=== PATIENT | female | born 1945 | race Caucasian/White ===

== ENCOUNTER 2018-03-05 19:13 | Emergency (ER) | payer OTHER ==
[2018-03-05 19:56] LABS: BASOPHILS % 0.5 (0.0-1.5); EOSINOPHILS % 1.6 % (0.0-6.8); MEAN CORPUSCULAR HEMOGLOBIN 30.1 pg (28.0-34.0); MEAN CORPUSCULAR VOLUME 94.1 fl (80.0-100.0); MONOCYTES % 3.2 % (0.0-11.0); NEUTROPHILS # 6.4 # k/uL (1.4-7.7)
[2018-03-05 20:15] LABS: eGFR (African) > 60; eGFR (Non-African) > 60
--- NOTE | 2018-03-05 20:17 | ED Physician Documentation ---
General Adult - HISTORIAN Historian: patient - HPI Chief Complaint: General Adult Onset: days ago Further Comments: yes (72 year old female patient presents with complaint of bilateral foot pain from neuropathy. Denies injury. Patient reports taking 5- 7 extra strength tylenol per day for the past several weeks. Patient also has bottle of Tylenol #3; 120 tabs with 5 tabs left in the bottle. Patient states "my doctor knows I'm doing this".) - ROS CONST: other (bilateral foot pain) EYES/ENT: none CVS/RESP: none GI/: diarrhea - PAST HX Past History: hypertension, other (neuropathy, HLD, anxiety, depression, GERD) Other History: diabetes Type 2 Allergies/Adverse Reactions: Allergies Allergy/AdvReac Type Severity Reaction Status Date / Time morphine Allergy Verified 03/05/18 20:35 Penicillins Allergy Verified 03/05/18 20:35 Home Medications: Ambulatory Orders Medication Instructions Recorded Acetaminophen [Tylenol Extra 500 mg PO Q6 03/05/18 Strength] Acetaminophen with Codeine 1 - 2 tab PO TID 03/05/18 [Tylenol with Codeine] Atorvastatin Calcium 40 mg PO HS 03/05/18 Buspirone HCl [Buspar] 7.5 mg PO BID 03/05/18 Diclofenac Sodium [Voltaren] 75 mg PO BID 03/05/18 Esomeprazole Magnesium [Nexium] 40 mg PO 0700 03/05/18 Glimepiride [Amaryl] 2 mg PO 0730 03/05/18 Hydroxyzine HCl [Atarax] 25 mg PO Q4H PRN 03/05/18 Losartan/Hydrochlorothiazide 1 each PO DAILY 03/05/18 [Hyzaar 100-25 Tablet] Metformin HCl [Glucophage] 1,[place] [address] 03/05/18 Metoprolol Tartrate [Lopressor] 25 mg PO DAILY 03/05/18 amLODIPine BESYLATE [Norvasc] 10 mg PO 0900 03/05/18 diphenhydrAMINE HCL [Benadryl] 25 mg PO Q4 PRN 03/05/18 - SOCIAL HX Smoking History: cigarettes - FAMILY HX Family History: No - VITAL SIGNS Vital Signs: Vital Signs Temp Pulse Resp BP Pulse Ox 156/85 10/04/13 16:00 - REVIEWED ASSESSMENTS Nursing Assessment Reviewed: Yes Vitals Reviewed: Yes Progress - Progress Progress: Confirmed and questioned patient multiple times on Tylenol intake. Explained risk of taking over 4G/24 hours. Will progress with lab and acetaminophen level. Explained we would not give pain medication until lab results are back. Acetaminophen level sent out to [facility]. 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 Recommended transfer for further evaluation and NAC treatment. Orders to start loading dose of mucomyst at 140mg/kg. Discussed lab and treatment plan with patient. Patient again c/o "why didn't Dr Taveras tell me this wasn't ok? He knew I was taking this much." Patient agrees to transfer to [facility] ED Results Lab/Radiology - Lab Results Lab Results: Lab Results 03/05/18 19:50 WBC 9.10 K/ul K/ul (4.00-12.00) RBC 3.94 M/ul M/ul (3.90-5.20) Hgb 11.9 g/dL L g/dL (12.0-16.0) Hct 37.1 % % (34.5-46.5) MCV 94.1 fl fl (80.0-100.0) MCH 30.1 pg pg (28.0-34.0) MCHC 32.0 g/dL g/dL (30.0-36.0) RDW 16.9 % H % (11.3-14.3) Plt Count 383 K/mm3 K/mm3 (130-400) Neut % (Auto) 70.1 % % (39.0-79.0) Lymph % (Auto) 23.7 % % (16.0-50.0) [place] % (Auto) 3.2 % % (0.0-11.0) Eos % (Auto) 1.6 % % (0.0-6.8) Baso % (Auto) 0.5 (0.0-1.5) Neut # (Auto) 6.4 # k/uL # k/uL (1.4-7.7) Lymph # (Auto) 2.2 # k/uL # k/uL (0.6-4.0) [place] # (Auto) 0.3 # k/uL # k/uL (0.0-0.9) Eos # (Auto) 0.2 # k/uL # k/uL (0.0-0.6) Baso # (Auto) 0.0 # k/uL # k/uL (0.0-0.5) Reactive Lymphs % 0.9 % % (0.0-5.0) Reactive Lymphs # 0.1 # k/uL # k/uL (0.0-0.8) - Orders Orders: ED Orders Category Date Time Status Continuous EKG monitoring Q30M Care 03/05/18 19:39 Active Continuous Pulse Oximetry Q30M Care 03/05/18 19:[address] IV Lock 1T Care 03/05/18 19:39 Active ACETAMINOPHEN LEVEL Stat Lab 03/05/18 19:50 Received CBC/PLATELET/DIFF Stat Lab 03/05/18 19:50 Completed CMP Stat Lab 03/05/18 19:50 Received UA W/MICRO IF INDICATED Stat Lab 03/05/18 20:05 Received Urine drug screen [DRUG SCREEN URINE MEDICAL ONLY] Stat Lab 03/05/18 19:39 Ordered EKG WITH COMPARISON Stat Ther 03/05/18 19:39 Ordered General Adult Physical Exam - PHYSICAL EXAM GENERAL APPEARANCE: moderate distress EENT: eye inspection normal, ENT inspection normal, pharynx normal, no signs of dehydration, KORY, no nystagmus, TM's nml RESPIRATORY: no resp distress, chest non-tender, breath sounds normal CVS: reg rate & rhythm, heart sounds normal, equal pulses, no murmur, no gallop , PMI nml, no JVD, no friction rub, 24 ABDOMEN: soft, no organomegaly, normal bowel sounds, no abdominal bruit, no distension SKIN: normal color, warm/dry, NR, INT, PAL, DR EXTREMITIES: non-tender, normal range of motion, no evidence of injury, no edema , other (PPP 3+; patient rubbing left foot; no ecchymosis, abrasion or edema noted in bilateral feet. 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
[2018-03-05 20:18] LABS: APPEARANCE,URINE Clear (CLEAR); COLOR,URINE Yellow (YELLOW); OCCULT BLOOD,URINE Negative (NEGATIVE); PH URINE 5.5 (5.0 - 8.0); UROBILINOGEN URINE 0.2 Eu (0.2-1.0)
[2018-03-05] MEDS ORDERED: BUTORPHANOL TARTRATE 2 MG/ML VIAL IV ONE (21:09)
[2018-03-05 21:31] LABS: CANNABINOIDS NEGATIVE ng/mL (< 50); METHYLENEDIOXYMETHAMPHETAMINE NEGATIVE ng/mL (<500)
[2018-03-05] MEDS ORDERED: ACETYLCYSTEINE 200MG/ML 30ML PO ONE (22:13)
[2018-03-05] MEDS ORDERED: ACETYLCYSTEINE 200MG/ML 30ML ONE (22:22)
[2018-03-05] MEDS ORDERED: ONDANSETRON HCL/PF 4 MG/ 2ML VIAL IVP ONE (22:28)
[2018-03-05 22:51] VITALS: BP 172/92
== END 2018-03-05 22:45 | disposition short-term general hospital (02) ==
LOC: ED 19:13
DX: T39.1X1A Poisoning by 4-Aminophenol derivatives, accidental (unintentional), initial encounter (principal); X58.XXXA Exposure to other specified factors, initial encounter; Y92.9 Unspecified place or not applicable; Y93.9 Activity, unspecified
CPT/HCPCS: 80053; 80377; 81002; 85025; 93005; J0132; J0595; J2405; 96374; 96375; 99283; G0481; S1016

== ENCOUNTER 2019-01-02 12:04 | Emergency (ER) | payer OTHER ==
--- NOTE | 2019-01-02 12:10 | ED Physician Documentation ---
General Adult - HISTORIAN Historian: patient - HPI Stated Complaint: blister opened on left great toe Chief Complaint: Lower Extremity Problem Onset: days ago (2) Timing: still present Severity: mild Further Comments: yes (She noticed a blister on her left great toe a few weeks ago and two days ago it opened. She states her friend told her it needed to be looked at. She is a diabetic . She is on oral meds. She does not check her blood sugars and states her PCP told her not to unless she sick. She denies any symtpoms of high blood sugar and states she will not have this checked. She states she has no pain. She is able to feel her feet. She denies any fever.) - ROS CONST: no problems MS/SKIN/LYMPH: other (open blister ) - PAST HX Past History: hypertension, other (DM2 oral control ) Immunizations: UTD Allergies/Adverse Reactions: Allergies Allergy/AdvReac Type Severity Reaction Status Date / Time morphine Allergy Verified 01/02/19 12:52 Penicillins Allergy Verified 01/02/19 12:52 Home Medications: Ambulatory Orders Medication Instructions Recorded Acetaminophen [Tylenol Extra 500 mg PO Q6 03/05/18 Strength] Acetaminophen with Codeine 1 - 2 tab PO TID 03/05/18 [Tylenol with Codeine] Atorvastatin Calcium 40 mg PO HS 03/05/18 Buspirone HCl [Buspar] 7.5 mg PO BID 03/05/18 Diclofenac Sodium [Voltaren] 75 mg PO BID 03/05/18 Esomeprazole Magnesium [Nexium] 40 mg PO 0700 03/05/18 Glimepiride [Amaryl] 2 mg PO 0730 03/05/18 Hydroxyzine HCl [Atarax] 25 mg PO Q4H PRN 03/05/18 Losartan/Hydrochlorothiazide 1 each PO DAILY 03/05/18 [Hyzaar 100-25 Tablet] Metformin HCl [Glucophage] 1,[place] [address] 03/05/18 Metoprolol Tartrate [Lopressor] 25 mg PO DAILY 03/05/18 amLODIPine BESYLATE [Norvasc] 10 mg PO 0900 03/05/18 diphenhydrAMINE HCL [Benadryl] 25 mg PO Q4 PRN 03/05/18 - SOCIAL HX Smoking History: non-smoker Alcohol Use: none Drug Use: none - FAMILY HX Family History: No - VITAL SIGNS Vital Signs: Vital Signs Temp Pulse Resp BP Pulse Ox 172/92 03/05/18 22:45 - REVIEWED ASSESSMENTS Nursing Assessment Reviewed: Yes Vitals Reviewed: Yes Progress - Progress Progress: 1225: she states she is refusing to have her blood sugar due to "My dr said dont check it unless I feel bad and I DONT FEEL BAD" DG Explained reasoning for finding a follow up physician and monitoring her blood sugar DG General Adult Physical Exam - PHYSICAL EXAM GENERAL APPEARANCE: no distress EENT: eye inspection normal, no signs of dehydration NECK: normal inspection RESPIRATORY: no resp distress, chest non-tender, breath sounds normal CVS: reg rate & rhythm ABDOMEN: soft, no distension SKIN: warm/dry, other (area on right great toe woodall side 2 cm round with open area. No drainge, no redness, no pain to touch or swelling. Pulses + FROM sensation +) EXTREMITIES: non-tender, normal range of motion, no evidence of injury, no edema NEURO: oriented X3 Discharge Clincal Impression: Blister (nonthermal), left great toe, initial encounter Referrals: Primary Doctor,No [Primary Care Provider] - 2 Days Comments: 1. Keflex 500 mg take 1 by mouth twice per day x 10 days 2. Keep area clean and dry 3. Monitor for further symptoms of infection - redness, swelling or drainage 4. Follow up with PCP in 2-4 days 5. Return to ER for any concerns Condition: Stable Disposition: 01 HOME, SELF-CARE Decision to Admit: NO Date of Decison to Admit: 01/02/19 Decision Time: 12:24
[2019-01-02 12:45] VITALS: BP 165/79
== END 2019-01-02 12:45 | disposition home or self-care (01) ==
LOC: ED 12:04
DX: S90.422A Blister (nonthermal), left great toe, initial encounter (principal); X58.XXXA Exposure to other specified factors, initial encounter
CPT/HCPCS: 99282